=== PATIENT | female | born 1940 | race Caucasian/White ===

== ENCOUNTER → 2021-04-26 | Outpatient (CLI) | payer OTHER | LOC: CT 07:03 | DX: C50.911 Malignant neoplasm of unspecified site of right female breast (principal); R10.812 Left upper quadrant abdominal tenderness | CPT/HCPCS: Q9967 ==

== ENCOUNTER → 2021-08-10 | Outpatient (CLI) | payer OTHER | LOC: EXRD 10:11 | DX: C50.212 Malignant neoplasm of upper-inner quadrant of left female breast (principal); D41.02 Neoplasm of uncertain behavior of left kidney; Z92.21 Personal history of antineoplastic chemotherapy; R27.0 Ataxia, unspecified; M85.89 Other specified disorders of bone density and structure, multiple sites | CPT/HCPCS: 77080 ==

== ENCOUNTER → 2022-01-08 | Outpatient (CLI) | payer OTHER ==
[~2022-01-08] VITALS: Ht 165.1 cm; Wt 68.0 kg
== END ==
LOC: EROP 12:15
DX: U07.1 COVID-19 (principal); Z23 Encounter for immunization
CPT/HCPCS: M0222; Q0222

== ENCOUNTER → 2022-02-16 | Outpatient (CLI) | payer OTHER | LOC: CT 08:13 | DX: C50.212 Malignant neoplasm of upper-inner quadrant of left female breast (principal); D41.02 Neoplasm of uncertain behavior of left kidney; Z92.21 Personal history of antineoplastic chemotherapy; R27.0 Ataxia, unspecified | CPT/HCPCS: 36415; 71260; 82565; 84520; Q9967 ==

== ENCOUNTER 2022-03-08 13:55 | Emergency (ER) | payer OTHER ==
[2022-03-08] MEDS ORDERED: HYDROCODON-ACE1 EAC4 PO (16:53)
== END 2022-03-08 17:02 | disposition home or self-care (01) ==
LOC: ER1 13:55
DX: S22.20XA Unspecified fracture of sternum, initial encounter for closed fracture (principal); S22.41XA Multiple fractures of ribs, right side, initial encounter for closed fracture; I10 Essential (primary) hypertension; V49.40XA Driver injured in collision with unspecified motor vehicles in traffic accident, initial encounter; Y92.410 Unspecified street and highway as the place of occurrence of the external cause
CPT/HCPCS: 70450; 71250; 72125; 72170; 93005; 99284